=== PATIENT | female | born 1990 | race Caucasian/White ===

== ENCOUNTER 2025-03-27 01:37 | Inpatient (IN) | payer BC, MEDICAID ==
[2025-03-27] MEDS ORDERED: Nalbuphine 10 MG/1 ML Vial IVPUSH PRN (01:51)
[2025-03-27] MEDS ORDERED: Ondansetron 4 MG/2 ML SDV IVPUSH PRN (01:51)
[2025-03-27] MEDS ORDERED: Sodium Chloride 0.9% 10 ML Syringe FLUSH PRN (01:51)
[2025-03-27] MEDS: Lactated Ringers 1,000 ML IV SCH (02:00)
[2025-03-27 02:01] LABS: BASOPHILS ABSOLUTE AUTO 0.0 K/mm3 (0.0-0.2); BASOPHILS PERCENT AUTO 0.3 % (0.0-1.0); EOSINOPHILS ABSOLUTE AUTO 0.1 K/mm3 (0.0-0.4); EOSINOPHILS PERCENT AUTO 0.9 % (0.0-6.0); IMMATURE GRAN ABSOLUTE AUTO 0.06 K/mm3 (0.00-0.05); IMMATURE GRAN PERCENT AUTO 0.7 % (0.0-0.4); LYMPHOCYTES ABSOLUTE AUTO 3.0 K/mm3 (1.0-4.8); LYMPHOCYTES PERCENT AUTO 35.0 % (24.0-44.0); MEAN PLATELET VOLUME 10.9 fl (9.4-12.3); MONOCYTES ABSOLUTE AUTO 0.5 K/mm3 (0.0-0.8); MONOCYTES PERCENT AUTO 5.8 % (0.0-8.0); NEUTROPHILS ABSOLUTE AUTO 4.9 K/mm3 (1.8-7.7); NEUTROPHILS PERCENT AUTO 57.3 % (41.0-71.0); NRBC ABSOLUTE 0.00 (0.00-0.02); NRBC PERCENT 0.0 % (0.0-0.2); PLATELET COUNT,PLT 296 K/mm3 (150-400); RED BLOOD CELL COUNT 3.68 M/mm3 (4.10-5.30); WHITE BLOOD CELL COUNT,WBC 8.61 K/mm3 (3.9-11.3)
[2025-03-27] MEDS: Oxytocin/0.9 % Sodium Chloride 30 UNIT/500 ML BAG IV SCH (02:17)
[2025-03-27 02:26] LABS: ALANINE AMINOTRANSFERASE,ALT 13.0 U/L (14-59); ASPARTATE AMNIOTRANSFERASE,AST 15.0 U/L (15-37); CREATININE 1.2 mg/dL (0.55-1.02); EST CRCL DRUG DOSING (CG) 57.58 mL/min; ESTIMATED GFR 61.0 mL/min (>60)
[2025-03-27] MEDS: Benzocaine/Menthol 20%-0.5% Spray 78 GM Cannister TOP PRN (05:07)
[2025-03-27] MEDS: Witch Hazel Medicated Pads 40/Jar TOP PRN (05:08)
[2025-03-27] MEDS ORDERED: Sodium Chloride 0.9% 10 ML Syringe FLUSH SCH (09:00)
[2025-03-27 22:05] LABS: GROUP B STREP BY PCR NEGATIVE (NEGATIVE)
== END 2025-03-28 17:15 | disposition home or self-care (01) | DRG 807 ==
LOC: JD.OBCHECK 01:37 → JD.OB 01:43 → JD.OBCHECK 01:58 → OBSVTOIN 02:18 → JD.OB 02:19
PROVIDERS: ADMIT Obstetrics & Gynecology; ATTEND Obstetrics & Gynecology
PROC: 10E0XZZ Delivery of Products of Conception, External Approach (ICD-10-PCS; principal; 2025-03-27)
DX: O10.02 Pre-existing essential hypertension complicating childbirth (principal); Z37.0 Single live birth; Z3A.37 37 weeks gestation of pregnancy; O69.81X0 Labor and delivery complicated by cord around neck, without compression, not applicable or unspecified; O77.0 Labor and delivery complicated by meconium in amniotic fluid
CPT/HCPCS: 36415; 59025; 59409; 82565; 84450; 84460; 85025; 86592; 87653; A9270-GY; J0290; J7120; J7999